=== PATIENT | male | born 1950 | race Caucasian/White ===

== ENCOUNTER → 2016-11-07 16:01 | Outpatient (CLI) | payer MEDICARE ==
[2015-12-28 08:01] VITALS: BMI 27.8
[~2016-11-07 16:01] MED LIST: CILOSTAZOL100 MG PO; HYDROCODONE-APA1 TAB PO; PROVENTIL HFA6.7 GM INH; XANAX0.25 MG PO; ZOCOR20 MG PO
[2016-11-07 17:37] LABS: ALBUMIN 4.1 g/dL (3.4-5.0); ALKALINE PHOSPHATASE 82 U/L (46-116); ALT (SGPT) 29 U/L (10-68); BILIRUBIN - TOTAL 0.53 mg/dL (0.2-1.3); CALC OSMOLALITY 279 mosm/kg (275-300); CALCIUM 9.1 mg/dL (8.5-10.1); CARBON DIOXIDE 27.5 mmol/L (21.0-32.0); CHLORIDE - SERUM 105 mmol/L (98-107); CHOL - HDL RATIO 3.8 ratio (2.3-4.9); CHOLESTEROL, TOTAL 165 mg/dL (0-200); CREATININE - SERUM 0.9 mg/dL (0.6-1.3); GLUCOSE 97 mg/dL (74-106); HDL CHOLESTEROL 44 mg/dL (32-96); LDL CHOLESTEROL 99 mg/dL (0-100); LDL-HDL RATIO 2.3 ratio (1.5-3.5); POTASSIUM - SERUM 4.1 mmol/L (3.5-5.1); PROTEIN - SERUM 6.9 g/dL (6.4-8.2); SCREENING PSA (YEARLY) 2.37 ng/mL (0.00-4.00); SODIUM 141 mmol/L (136-145); TRIGLYCERIDE 111 mg/dL (30-200); UREA NITROGEN 9 mg/dL (7-18); eGFR NON AFRICAN AMERICAN 89 mL/min (90-120)
== END | disposition home or self-care (01) ==
LOC: D.LABREF 16:01
PROVIDERS: Family Medicine
DX: Z12.5 Encounter for screening for malignant neoplasm of prostate (principal); E78.5 Hyperlipidemia, unspecified

== ENCOUNTER 2017-03-31 22:23 | Inpatient (IN) | payer MEDICARE ==
[~2017-03-31] VITALS: Ht 182.9 cm; Wt 86.2 kg
--- NOTE | ~2017-03-31 | CN ---
PATIENT NAME:DAJUAN BERMAN MEDICAL RECORD: [id number] : 46 LOCATION:D.[facility] ADMIT DATE: 04/01/17 ACCOUNT: [id number] CONSULTING PHYSICIAN: GLORIA PULIDO MD REFERRING PHYSICIAN: GLORIA CLEMENTS DO DATE OF CONSULTATION: 04/01/2017 Surgical Consultation CHIEF COMPLAINT: Nausea and vomiting. The patient's symptoms began about 4 or 5 days ago. Initially, he thought he was having some gastroenteritis. I personally reviewed the CT images. I personally reviewed the CT report. HISTORY OF PRESENT ILLNESS: I saw the patient and his family with Antonina Olguin RN. He is having kind of a diffuse band-like abdominal pain. He has had no prior abdominal operations. No prior history of a malignancy. No incarcerated hernias. No inflammatory process within the abdomen. So I think that adhesive disease might be a possibility, but also we have to think of an internal hernia or a malignancy which may be causing his symptoms. He is not experiencing any peritonitis yet. I am having the nurses place a nasogastric tube. We are going to decompress the stomach as well as his proximal small bowel, and then perform a small bowel follow-through on him tomorrow, which may be diagnostic as well as therapeutic. Palpation aggravates. Nothing alleviates. Symptoms are mild. If he starts to develop peritoneal signs or we have a significantly elevated white count, then I might be pressed into performing a diagnostic laparoscopy or laparotomy. I have explained this to the patient's family. This is a consultation note addendum. For the typed portion of the consult note, please see the chart. This will include the past medical and surgical history, allergies, social history, family history, as well as current medications. REVIEW OF SYSTEMS: Positive for nausea, positive for vomiting, positive for abdominal pain. No fever, no chills, no chest pain, no shortness of breath. The review of systems is negative other than as it is described above. PHYSICAL EXAMINATION: GENERAL: The patient does appear acutely ill. He does not appear chronically ill. VITAL SIGNS: Reviewed. HEAD: External ears appear normal. EYES: Extraocular movements are intact. NECK: Trachea is midline. CHEST: No intercostal retractions. PULMONARY: Decreased breath sounds in the bases. ABDOMEN: Mild diffuse tenderness, and he has a self-reducing umbilical hernia. GENITOURINARY: No incarcerated inguinal hernias. PSYCHIATRIC: Normal affect. NEUROLOGIC: Nonfocal, no lethargy. The patient answered questions appropriately, moves all extremities well. BACK: No thoracic kyphosis. CONSULT REPORT [id number] DAJUAN BERMAN LYMPHATICS: No lymphangitic streaking of the exposed extremities. IMPRESSION: Small bowel obstruction versus ileus. I favor a small bowel obstruction. PLAN: A Gastrografin small bowel follow-through in the morning, which may be diagnostic as well as therapeutic. Nasogastric suctioning for gastric and enteral decompression. TRANSINT:[id number] Voice Confirmation ID: [id number] DOCUMENT ID: [id number] GLORIA PULIDO MD CC: [id number] DICTATION DATE: 04/01/171933 MARKET SUPERINTENDENT: 04/01/172234 ADM IN [facility] [address] [place] [address]
--- NOTE | ~2017-03-31 | PN ---
PATIENT:DAJUAN BERMAN MEDICAL RECORD: [id number] LOCATION:D.MS [facility] ADMISSION DATE: 04/01/17 PROGRESS NOTE DATE OF SERVICE: 04/02/2017 Progress Note Addendum CHIEF COMPLAINT: Better. I have reviewed his x-ray images. He appears to have a partial small-bowel obstruction. I removed the nasogastric tube. There is dye within the colon. Symptoms are improved. The patient is hungry. I am going to start him on a clear liquid diet. Symptoms are moderate. They are difficult to characterize. They are nonradiating. This is a progress note addendum. For the typed portion of the progress note, please see the chart. This would include the past medical and surgical history, allergies, social history as well as current medications. REVIEW OF SYSTEMS: Currently, no nausea, no vomiting, no fever, no chills. PHYSICAL EXAMINATION: GENERAL: The patient does not appear acutely ill. He does not appear chronically ill. VITAL SIGNS: Reviewed. HEAD: External ears appear normal. EYES: Extraocular movements are intact. NECK: Trachea is midline. CHEST: No intercostal retractions. PULMONARY: Nonlabored, no stridor. ABDOMEN: No peritonitis with movement. ABDOMEN: Less distended. EXTREMITIES: No peripheral cyanosis. BACK: No thoracic kyphosis. LYMPHATIC: No lymphangitic streaking of the exposed extremities. IMPRESSION: Resolving partial small-bowel obstruction. PLAN: Clear liquid diet and discontinue the nasogastric tube. TRANSINT:[id number] Voice Confirmation ID: [id number] DOCUMENT ID: [id number] GLORIA PULIDO MD CC: [id number] DICTATION DATE: 04/03/171751 ACQUISITION MANAGER: 04/04/17 0145 ADM IN [facility] [address] [id number]
--- NOTE | ~2017-03-31 | PN ---
PATIENT:DAJUAN BERMAN MEDICAL RECORD: [id number] LOCATION:D.[facility] ADMISSION DATE: 04/01/17 PROGRESS NOTE DATE OF SERVICE: 04/03/2017 PROGRESS NOTE ADDENDUM CHIEF COMPLAINT: Better. The patient has big smile on his face. He is hungry. He wants more than clear liquid diet. I have discussed this case personally with Dr. Bautista. I advanced him to a regular diet. As I discussed with him and Dr. Bautista, we still do not have an etiology for his bowel obstruction. Dr. Bautista thinks it might be due to intestinal ischemia as the patient is a significant smoker. Currently, the patient is not having any symptoms. Nothing aggravates. Nothing alleviates. This is a progress note addendum. For the typed portion of the progress note, please see the chart. This will include the past medical and surgical history, allergies, current medications as well as family history. REVIEW OF SYSTEMS: No nausea, no vomiting, no fever, no chills. The review of systems is negative other than as is described above. PHYSICAL EXAMINATION: GENERAL: The patient does not appear acutely ill. He does not appear chronically ill. VITAL SIGNS: Reviewed. EARS: External ears appear normal. EYES: Extraocular movements are intact. NECK: Trachea is midline. CHEST: No intercostal retractions. PULMONARY: Nonlabored, no stridor. ABDOMEN: No peritonitis with movement. EXTREMITIES: No peripheral cyanosis. INTEGUMENT: No rash, no ulcerations. PSYCHIATRIC: Normal affect. BACK: No thoracic kyphosis. LYMPHATICS LYMPHATIC: No lymphangitic streaking of the exposed extremities. IMPRESSION: Resolved small-bowel obstruction of uncertain etiology. PLAN: I will see the patient on a p.r.n. basis. TRANSINT:[id number] Voice Confirmation ID: [id number] DOCUMENT ID: [id number] PROGRESS NOTE [id number] BERMANDAJUAN MARRUFO GLORIA PULIDO MD CC: [id number] DICTATION DATE: 04/03/171753 DIRECTOR OF INTELLIGENCE: 04/04/17 0158 ADM IN [facility] [address] [place] [address]
[2017-03-31 22:59] LABS: BASOPHILS 0.1 % (0-2); EOSINOPHILS 0.1 % (0-7); HEMATOCRIT 46.3 % (42.0-54.0); HEMOGLOBIN 16.6 g/dL (13.5-17.5); IMMATURE GRANULOCYTES 0.3 % (0-5); LYMPHOCYTES 13.4 % (15-50); MCH 34.5 pg (26.0-34.0); MCHC 35.9 g/dL (31.0-37.0); MCV 96.3 fL (80.0-100.0); MEAN PLATELET VOLUME 9.6 fL (7.4-10.4); MONOCYTES 7.1 % (2-11); PLATELET COUNT 205 10x3/uL (130-400); RBC 4.81 10x6/uL (4.20-6.10); RDW 12.3 % (11.5-14.5); WBC 14.3 10x3/uL (4.8-10.8)
[2017-03-31 23:13] LABS: ALBUMIN 3.6 g/dL (3.4-5.0); ALKALINE PHOSPHATASE 65 U/L (46-116); ALT (SGPT) 21 U/L (10-68); AMYLASE - SERUM 45 U/L (25-115); BILIRUBIN - TOTAL 0.44 mg/dL (0.2-1.3); CALC OSMOLALITY 283 mosm/kg (275-300); CALCIUM 9.3 mg/dL (8.5-10.1); CARBON DIOXIDE 29.9 mmol/L (21.0-32.0); CHLORIDE - SERUM 100 mmol/L (98-107); GLUCOSE 163 mg/dL (74-106); LIPASE 90 U/L (73-393); MAGNESIUM - SERUM 1.7 mg/dL (1.8-2.4); POTASSIUM - SERUM 3.5 mmol/L (3.5-5.1); SODIUM 140 mmol/L (136-145); UREA NITROGEN 14 mg/dL (7-18); eGFR NON AFRICAN AMERICAN 79 mL/min (90-120)
[2017-04-01 01:03] LABS: APPEARANCE CLEAR (CLEAR); BILIRUBIN NEGATIVE (NEGATIVE); COLOR DK YELLOW (YELLOW); GLUCOSE NEGATIVE (NEGATIVE); KETONE NEGATIVE (NEGATIVE); LEUKOCYTE ESTERASE TRACE (NEGATIVE); NITRITE NEGATIVE (NEGATIVE); PROTEIN TRACE mg/dL (NEGATIVE); UROBILINOGEN NORMAL (NORMAL)
[2017-04-01 01:04] LABS: BACTERIA MODERATE /hpf (NONE SEEN); EPITHELIAL CELLS 0-5 /hpf (0-5); HYALINE CAST 0-5 /lpf (NONE SEEN); MUCUS >1+ /lpf (NONE SEEN); RED CELLS - URINE 0-5 /hpf (0-5); WHITE CELLS - URINE 0-5 /hpf (0-5)
[2017-04-01 01:05] LABS: AMORPHOUS SEDIMENT <1+ /lpf (NONE SEEN)
[2017-04-01] MEDS ORDERED: AVAPRO150 MG PO (03:36)
[2017-04-01] MEDS ORDERED: METOPROLOL TART50 MG PO (03:36)
--- NOTE | 2017-04-01 03:43 | NUR ---
REPORT RECEIVED FROM GURJIT BANDA IN THE ER.
--- NOTE | 2017-04-01 03:58 | NUR ---
RECEIVED TO ROOM FROM ER VIA WHEELCHAIR. PT ALERT AND ORIENTED AND VITAL SIGNS STABLE. ASSESSMENT AND HISTORY OBTAINED PER FLOWSHEET. NPO AND CALL LIGHT IN REACH, WILL CONTINUE WITH PLAN OF CARE.
[2017-04-01 04:00] VITALS: BP 166/94
[2017-04-01] MEDS ORDERED: ZOCOR20 MG PO (04:10)
[2017-04-01] MEDS ORDERED: ASPIRIN325 MG PO (04:11)
[2017-04-01] MEDS ORDERED: NIASPAN500 MG PO (04:11)
[2017-04-01] MEDS ORDERED: VITAMIN B-122500 MCG PO (04:12)
[2017-04-01] MEDS ORDERED: VITAMIN D31000 UNI2 PO (04:12)
[2017-04-01] MEDS ORDERED: NORVASC10 MG PO (04:13)
[2017-04-01 04:14] VITALS: BP 155/76; BMI 25.8
--- NOTE | 2017-04-01 06:15 | NUR ---
PRN MORPHINE ADMINISTERED PER ORDER FOR PAIN 7/10 ABDOMINALLY. PT REMAINS NPO. AT BEDSIDE. WILL CONTINUE WITH PLAN OF CARE.
--- NOTE | 2017-04-01 07:20 | NUR ---
PATIENT RECEIVED ALERT IN [place] POSITION WITH AT BEDSIDE. NO SIGNS OF DISTRESS NOTED. DENIES NEEDS. SIDE RAILS UP X2. BED IN LOW POSITION. CALL LIGHT IN REACH.
[2017-04-01 08:26] VITALS: BP 125/75
--- NOTE | 2017-04-01 09:10 | NUR ---
PATIENT IN [place] POSITION RESTING WITH EYES CLOSED. RESPIRATIONS EVEN AND UNLABORED. WAKES EASY. SCHEDULED MEDICATION ADMINISTERED. SIDE RAILS UP X2. BED IN LOW POSITION. CALL LIGHT IN REACH. DENIES NEEDS. FAMILY AT BEDSIDE.
--- NOTE | 2017-04-01 10:34 | NUR ---
RATIONALE FOR SCD'S EXPLAINED. REFUSED SCD'S
--- NOTE | 2017-04-01 11:28 | NUR ---
Patient Name: DAJUAN BERMAN Admission Status: ER Accout number: [id number] Admission Date: 04-01-2017 : 1950 Admission Diagnosis: Attending: GLORIA CLEMENTS Current LOS: 1 Anticipated DC Date: Planned Disposition: Home Primary Insurance: [facility] Discharge Planning Comments: CM met with patient to assess discharge planning needs. Patient lives independently with his wife3 Danii, who will be the one to take him home at discharge. Patient denies any HH needs. He does not have any steps to enter in his home. He does have a Nebulizer where he gets from [facility]. CM will continue to follow and assist with discharge planning needs. PCP: Dayday Vázquez Danii () [phone] [employer] Shortage And Damage Clerk: Radha Kate * Is the patient Alert and Oriented? Yes 0 * How many steps to enter\exit or inside your home? 0 0 * PCP [facility] 0 * Pharmacy [facility] 0 * Preadmission Environment Home with Family 0 * ADLs Independent 0 * Equipment Nebulizer 0 * Other Equipment with [facility] 0 * List name and contact numbers for known caregivers / representatives who currently or will assist patient after discharge: Danii () [phone] 0 * Community resources currently utilized None 0 * Additional services required to return to the preadmission environment? No 0 * Can the patient safely return to the preadmission environment? Yes 0 * Has this patient been hospitalized within the prior 30 days at any hospital? No 0 Grand Total: 0
--- NOTE | 2017-04-01 13:15 | NUR ---
PATIENT ALERT IN BED WATCHING TV. NO SIGNS OF DISTRESS NOTED. DENIES NEEDS. BED IN LOW POSITION. CALL LIGHT IN REACH.
--- NOTE | 2017-04-01 14:27 | NUR ---
PATIENT ALERT IN BED. C/O PAIN 8/10 AND INDIGESTION. MORPHINE AND ZOFRAN ADMINISTERED PER PRN ORDER. IV TO LEFT HAND PATENT. NO REDNESS OR INFLAMMATION NOTED. FAMILY AT BEDSIDE. DENIES NEEDS. SIDE RAILS UP X2. BED IN LOW POSITION. CALL LIGHT IN REACH.
--- NOTE | 2017-04-01 16:50 | NUR ---
PATIENT RESTING QUIETLY WITH EYES CLOSED. RESPIRATIONS EVEN AND UNLABORED. WAKES EASY. SCHEDULED IV ABX INITIATED. IV TO LEFT HAND PATENT. NO REDNESS OR INFLAMMATION NOTED. FAMILY PRESENT. SIDE RAILS UP X2. BED IN LOW POSITION. CALL LIGHT IN REACH.
--- NOTE | 2017-04-01 18:15 | NUR ---
16 LAO NGT PLACED TO LEFT NARE. PLACEMENT VERIFIED WITH AIR BOLUS. 1100CC BROWN CONTENT RETURNED. SECURED TO NOSE. PLACED TO LIWS. WELL TOLERATED.
[2017-04-01 19:00] VITALS: BP 123/76
--- NOTE | 2017-04-01 21:47 | NUR ---
PT STATED PAIN WAS COMING BACK AND AT A 5, GAVE PT PRN MORPHINE AND SCHEDULED MEDICINES AT THIS TIME. NG TUBE CANNISTER FILLED TO 1000 AT THIS TIME CHANGED CANISTER AND RECORDED OUTPUT. BED IN LOW POSITION CALL LIGHT IN REACH NO OTHER NEEDS AT THIS TIME.PT SP AT BEDSIDE
[2017-04-02 04:00] VITALS: BP 141/78
[2017-04-02 05:11] LABS: BASOPHILS 0.2 % (0-2); EOSINOPHILS 1.3 % (0-7); HEMATOCRIT 41.3 % (42.0-54.0); HEMOGLOBIN 14.3 g/dL (13.5-17.5); IMMATURE GRANULOCYTES 0.2 % (0-5); LYMPHOCYTES 24.4 % (15-50); MCH 33.9 pg (26.0-34.0); MCHC 34.6 g/dL (31.0-37.0); MCV 97.9 fL (80.0-100.0); MEAN PLATELET VOLUME 9.7 fL (7.4-10.4); MONOCYTES 9.2 % (2-11); NEUTROPHILS 64.7 % (40-80); PLATELET COUNT 189 10x3/uL (130-400); RBC 4.22 10x6/uL (4.20-6.10); RDW 12.6 % (11.5-14.5)
[2017-04-02 05:20] LABS: WBC 9.8 10x3/uL (4.8-10.8)
[2017-04-02 05:29] LABS: ALBUMIN 2.9 g/dL (3.4-5.0); ALKALINE PHOSPHATASE 45 U/L (46-116); CALC OSMOLALITY 281 mosm/kg (275-300); CALCIUM 8.3 mg/dL (8.5-10.1); CARBON DIOXIDE 30.2 mmol/L (21.0-32.0); CHLORIDE - SERUM 104 mmol/L (98-107); CREATININE - SERUM 0.8 mg/dL (0.6-1.3); GLUCOSE 118 mg/dL (74-106); MAGNESIUM - SERUM 1.6 mg/dL (1.8-2.4); PHOSPHOROUS 3.7 mg/dL (2.5-4.9); PROTEIN - SERUM 5.7 g/dL (6.4-8.2); SODIUM 141 mmol/L (136-145); UREA NITROGEN 13 mg/dL (7-18); eGFR NON AFRICAN AMERICAN > 90 mL/min (90-120)
[2017-04-02 05:41] LABS: ALT (SGPT) 15 U/L (10-68)
--- NOTE | 2017-04-02 05:48 | NUR ---
PT IS RESTING QUIET WITH NO DISTRESS. THE NG TUBE IS WORKING IT SHOULD. ASSESSED AT THIS TIME. THE BED IS LOW, RAILS UP X'S 3 WITH THE CALL LIGHT AT HAND.
--- NOTE | 2017-04-02 07:59 | NUR ---
PT HAD 3.0 K+ AND 1.6 MAG WENT TO HANG REPLACEMENTS AND TUBING HAD A HOLE IN IT. MS. VEE CHANGED TUBING AND STATED WILL HANG REPLACEMENTS WHEN MERREM IS DONE RUNNING
--- NOTE | 2017-04-02 08:10 | NUR ---
ELECTROLYTE PROTOCOL INITIATED AT THIS TIME. PT TAKEN TO IMAGING FOR SMALL BOWEL FOLLOW THROUGH. NG TUBE CLAMPED. WILL MONITOR PT WHEN HE RETURNS BACK TO ROOM 2208.
[2017-04-02 09:46] VITALS: BP 144/74
--- NOTE | 2017-04-02 10:00 | NUR ---
BACK TO ROOM FROM IMAGING DEPARTMENT. NG TUBE REMAINS CLAMPED PER INSTRUCTION. WILL CONTINUE WITH PLAN OF CARE.
--- NOTE | 2017-04-02 12:01 | NUR ---
PRN MORPHINE ADMINISTERED FOR PAIN AT THIS TIME. FAMILY REMAINS AT BEDSIDE. CALL LIGHT IN REACH, WILL CONTINUE WITH PLAN OF CARE.
[2017-04-02 12:43] VITALS: Ht 182.9 cm; Wt 86.2 kg
[2017-04-02 12:55] VITALS: BP 113/81
--- NOTE | 2017-04-02 15:15 | NUR ---
CONNECTED NG TUBE BACK TO LOW INTERMITTENT WALL SUCTION PER RADIOLOGY BEING COMPLETE WITH TESTING.
[2017-04-02 16:42] VITALS: BP 167/85
[2017-04-02 20:20] VITALS: BP 153/69
--- NOTE | 2017-04-02 21:37 | NUR ---
SUPERVISOR PIPELINE MAINTENANCE CAME AND TOLD ME PT IV LOOKE LIKE IT IS COMING OUT, WENT TO INSPECT AND PT IV IS STILL GOOD. BLOOD RETURN, AND FLUSHED WITH NO PROBLEMS. CATHETER IS A LITTLE OUT FROM UNDER SKIN, ADDED TAPE TO REINFORCE, WILL MONITOR STATUS OF IV
[2017-04-03 00:40] VITALS: BP 132/56
--- NOTE | 2017-04-03 01:25 | NUR ---
PATIENT IS RESTING QUIETLY WITH EYES CLOSED. NO SIGNS OF DISTRESS NOTED. FAMILY MEMBER ASLEEP IN RECLINER. BED IN LOWEST POSITION, CALL LIGHT IN REACH. BED RAILS UP X'S 2.
[2017-04-03 04:56] VITALS: BP 164/78
[2017-04-03 05:35] LABS: BASOPHILS 0.6 % (0-2); HEMATOCRIT 39.6 % (42.0-54.0); HEMOGLOBIN 13.6 g/dL (13.5-17.5); IMMATURE GRANULOCYTES 0.4 % (0-5); LYMPHOCYTES 29.3 % (15-50); MCH 33.5 pg (26.0-34.0); MCHC 34.3 g/dL (31.0-37.0); MCV 97.5 fL (80.0-100.0); MEAN PLATELET VOLUME 9.8 fL (7.4-10.4); MONOCYTES 7.5 % (2-11); NEUTROPHILS 57.2 % (40-80); PLATELET COUNT 187 10x3/uL (130-400); RBC 4.06 10x6/uL (4.20-6.10); RDW 12.4 % (11.5-14.5); WBC 8.3 10x3/uL (4.8-10.8)
[2017-04-03 05:56] LABS: ALBUMIN 2.7 g/dL (3.4-5.0); ALKALINE PHOSPHATASE 39 U/L (46-116); ALT (SGPT) 16 U/L (10-68); CALC OSMOLALITY 277 mosm/kg (275-300); CALCIUM 7.9 mg/dL (8.5-10.1); CARBON DIOXIDE 27.4 mmol/L (21.0-32.0); CHLORIDE - SERUM 106 mmol/L (98-107); CREATININE - SERUM 0.6 mg/dL (0.6-1.3); GLUCOSE 96 mg/dL (74-106); MAGNESIUM - SERUM 1.5 mg/dL (1.8-2.4); PROTEIN - SERUM 5.5 g/dL (6.4-8.2); SODIUM 140 mmol/L (136-145); UREA NITROGEN 10 mg/dL (7-18); eGFR NON AFRICAN AMERICAN > 90 mL/min (90-120)
[2017-04-03 05:58] LABS: PHOSPHOROUS 2.7 mg/dL (2.5-4.9); POTASSIUM - SERUM 3.1 mmol/L (3.5-5.1)
--- NOTE | 2017-04-03 06:24 | NUR ---
PT LABS CAME BACK AND PT K+ IS 3.1 AND MAG IS 1.5 STARTED ELECTROLYTE REPLACEMENTWILL PASS ON IN RAPPORT
--- NOTE | 2017-04-03 07:24 | NUR ---
SLEEPING AT THIS TIME WITH RESPIRATIONS EVEN AND NON LABORED. CALL LIGHT IN REACH, WILL CONTINUE WITH PLAN OF CARE.
--- NOTE | 2017-04-03 08:17 | NUR ---
SCHEDULED MEDICATIONS ADMINISTERED AT THIS TIME. AT BEDSIDE. DENIES NEEDS AT THIS TIME. CALL LIGHT IN REACH, WILL CONTINUE WITH PLAN OF CARE.
[2017-04-03 09:39] VITALS: BP 135/70
[2017-04-03 13:06] VITALS: BP 159/78
[2017-04-03 16:59] VITALS: BP 142/82
[2017-04-03 20:00] VITALS: BP 143/64
--- NOTE | 2017-04-03 20:15 | NUR ---
WATCHING TV WITH NO COMPLAINTS. SL TO LEFT THUMB INTACT WITHOUT REDNESS OR EDEMA NOTED.ABD SOFT NONDISTENDED WITH BOWEL SOUNDS PRESENT. CL IN REACH. FAMILY AT BEDSIDE.
--- NOTE | 2017-04-04 03:25 | NUR ---
ASSESSED, PT IS ASLEEP WITH EASY RESPIRATIONS AND NO DISTRESS NOTED. HIS FAMILY MEMBER IS AT THE BEDSIDE ASLEEP ALSO. THE BED IS LOW, RAILS UP X'S 2 WITH THE CALL LIGHT AT HAND.
[2017-04-04 04:00] VITALS: BP 133/74
[2017-04-04 04:39] LABS: BASOPHILS 0.5 % (0-2); EOSINOPHILS 4.5 % (0-7); HEMATOCRIT 40.5 % (42.0-54.0); HEMOGLOBIN 14.1 g/dL (13.5-17.5); IMMATURE GRANULOCYTES 0.3 % (0-5); LYMPHOCYTES 24.3 % (15-50); MCH 33.5 pg (26.0-34.0); MCHC 34.8 g/dL (31.0-37.0); MCV 96.2 fL (80.0-100.0); MEAN PLATELET VOLUME 9.4 fL (7.4-10.4); MONOCYTES 8.4 % (2-11); PLATELET COUNT 203 10x3/uL (130-400); RBC 4.21 10x6/uL (4.20-6.10); RDW 12.2 % (11.5-14.5); WBC 8.8 10x3/uL (4.8-10.8)
[2017-04-04 05:00] LABS: ALKALINE PHOSPHATASE 45 U/L (46-116); ALT (SGPT) 19 U/L (10-68); CALC OSMOLALITY 271 mosm/kg (275-300); CALCIUM 8.2 mg/dL (8.5-10.1); CARBON DIOXIDE 27.8 mmol/L (21.0-32.0); CHLORIDE - SERUM 105 mmol/L (98-107); CREATININE - SERUM 0.7 mg/dL (0.6-1.3); GLUCOSE 102 mg/dL (74-106); MAGNESIUM - SERUM 1.8 mg/dL (1.8-2.4); POTASSIUM - SERUM 3.5 mmol/L (3.5-5.1); PROTEIN - SERUM 5.9 g/dL (6.4-8.2); SODIUM 137 mmol/L (136-145); eGFR NON AFRICAN AMERICAN > 90 mL/min (90-120)
[2017-04-04 05:03] LABS: UREA NITROGEN 7 mg/dL (7-18)
--- NOTE | 2017-04-04 05:42 | NUR ---
WATCHING TV WIHTOUT COMPLAINTS. CL IN REACH. REMAINS AT BEDSIDE
--- NOTE | 2017-04-04 07:30 | NUR ---
ASSESSMENT COMPLETE. IV TO L HAND PATENT. REFUSING TO WEAR SCD'S. DENIES ANY COMPLAINT OF NAUSEA OR PAIN AT THIS TIME.
[2017-04-04 08:03] VITALS: BP 176/71
--- NOTE | 2017-04-04 10:10 | NUR ---
IV REMOVED. CATHETER TIP INTACT. DISCHARGE TEACHING GIVEN TO PATIENT AND . VOICED UNDERSTANDING OF INSTRUCTIONS.
--- NOTE | 2017-04-04 10:15 | NUR ---
DC'D HOME WITH . ESCORTED TO VEHICLE BY LEAF BINNER WITH BELONGINGS.
--- NOTE | 2017-04-08 08:15 | HP ---
PATIENT: DAJUAN BERMAN MEDICAL RECORD: [id number] ACCOUNT: [id number] LOCATION:D.MS [facility] : 48 ADMISSION DATE: 04/01/17 HISTORY AND PHYSICAL EXAMINATION HISTORY OF PRESENT ILLNESS: A 66-year-old male who presented to the Emergency Room late last night after 3 days of abdominal pain, initial minimal diarrhea, nausea and vomiting. No bowel movement in the past 2 days, worsening abdominal pain. PAST MEDICAL HISTORY: Significant for hypertension, cardiovascular disease with stent placement times 2, COPD, chronic bronchitis, nicotine dependence. CURRENT MEDICATIONS: Aspirin, niacin, simvastatin, losartan. ALLERGIES: LISTED FLU VACCINE AND EGGS. REVIEW OF SYSTEMS: GENERAL: Loss of appetite with acute illness. HEENT: No cephalgia, visual changes, tinnitus, epistaxis or dysphagia. CARDIOVASCULAR: Denies chest pain, denies palpitations. PULMONARY: History as above. Denies hemoptysis, denies night sweats. GASTROINTESTINAL: Denies hematemesis, hematochezia or melena. Does admit to abdominal pain, history as above. No bowel movement in the past 2+ days. GENITOURINARY: Denies dysuria, denies change in frequency. MUSCULOSKELETAL: No acute changes. ENDOCRINE: Denies polyuria, polydipsia, or polyphagia. FAMILY HISTORY: Noncontributory. PHYSICAL EXAMINATION: VITAL SIGNS: Temperature 97.5, blood pressure 155/76, heart rate 80, respirations 19, O2 sats 98%. GENERAL: Alert, oriented, in moderate distress secondary to abdominal pain. HEENT: Normocephalic, atraumatic. Eyes: Pupils equal, round, reactive. Ears: Canals patent, TMs are intact. Nose: Nares patent without drainage. Throat: No erythema, no exudates. NECK: Supple. No lymphadenopathy. HEART: Regular rate and rhythm. No S3 or S4, no rub. LUNGS: Prolonged expiratory phase. Breathing is nonlabored. ABDOMEN: Distended. No appreciable bowel sounds. Diffuse tenderness. No rebound, no guarding, no palpable mass. EXTREMITIES: Present times 4, no edema. NEUROLOGIC: Intact. IMAGING: CT preliminary, small bowel obstruction. Point of transition appears to be lower right paramedian abdomen. EKG shows sinus rhythm, rate of 91. No significant changes. LABORATORY DATA: Urinalysis yellow, clear, trace protein, negative nitrites, moderate bacteria. CBC: White count 14,300, hemoglobin 16.6, hematocrit 46.3, platelets 205. Chemistry shows a sodium of 140, potassium 3.5, chloride 100, bicarbonate 29.9, BUN 14, creatinine 1, glucose 163, calcium 9.3, magnesium 1.7. AST 21, ALT 21, alkaline phosphatase 65. Amylase 45, lipase 90. HISTORY AND PHYSICAL [id number] DAJUAN BERMAN ASSESSMENT AND PLAN: 1. Acute small bowel obstruction. The patient is n.p.o. Surgery consulted. Monitor. 2. Chronic obstructive pulmonary disease. DuoNebs. We will also obtained blood cultures with the leukocytosis. Cover patient empirically with Invanz 1 gram daily. 3. Hypertension. We will hold meds presently. Surgery eval, may need IV medications until cleared by surgery for p.o. TRANSINT:[id number] Voice Confirmation ID: [id number] DOCUMENT ID: [id number] GLORIA CLEMENTS DO at 0815 CC: [id number] DICTATION DATE: 04/01/17 075 LEATHER CASE FINISHER: 04/01/17 0826 DIS IN 04/04/17 [facility] [address] [place] [address]
== END 2017-04-04 10:15 | disposition home or self-care (01) | DRG 390 ==
LOC: D.ER 22:23 → D.MS 04-01 03:31
PROVIDERS: Emergency Medicine; ADMIT Family Medicine
PROC: 0D9670Z Drainage of Stomach with Drainage Device, Via Natural or Artificial Opening (ICD-10-PCS; principal; 2017-04-01)
DX: K56.60 Unspecified intestinal obstruction (principal); J44.9 Chronic obstructive pulmonary disease, unspecified; I10 Essential (primary) hypertension; F17.200 Nicotine dependence, unspecified, uncomplicated

== ENCOUNTER → 2017-08-06 09:22 | Outpatient (CLI) | payer MEDICARE ==
[2017-04-02 12:43] VITALS: BMI 25.7
[~2017-08-06 09:22] MED LIST changes: +ASPIRIN325 MG PO; +AVAPRO150 MG PO; +METOPROLOL TART50 MG PO; +NIASPAN500 MG PO; +NORVASC10 MG PO; +VITAMIN B-122500 MCG PO; +VITAMIN D31000 UNI2 PO
== END | disposition home or self-care (01) ==
LOC: D.CT 09:22
DX: R10.9 Unspecified abdominal pain (principal)

== ENCOUNTER → 2017-09-16 09:00 | Outpatient (CLI) | payer MEDICARE ==
[2017-04-02 12:43] VITALS: BMI 25.7
== END | disposition home or self-care (01) ==
LOC: D.LAB 09:00
DX: R10.9 Unspecified abdominal pain (principal); R19.4 Change in bowel habit